=== PATIENT | male | born 1970 | race Caucasian/White ===

== ENCOUNTER 2022-04-10 09:25 | Emergency (ER) | payer OTHER, SELFPAY ==
[2022-04-10 09:26] VITALS: BP 151/100; PULSE 99; RESP 17; TEMP 35.8; O2SAT 96; BMI 24.7
--- NOTE | 2022-04-10 09:35 | RAD_ITS ---
STUDY: X-RAY - RIGHT WRIST REASON FOR EXAM: Male, 52 years old. Dog bite TECHNIQUE: 3 view(s) of the wrist were obtained. COMPARISON: None. FINDINGS: Normal visualized distal radius and ulna. Normal radiocarpal articulation. Normal distal radioulnar articulation. Normal carpal bones. Normal carpal articulations. Normal carpometacarpal articulation of the thumb. Normal second through fifth carpometacarpal articulations. Normal visualized metacarpal bones. The soft tissue structures are unremarkable. RAD/Wrist min 3 Views IMPRESSION: Normal x-ray examination of the wrist. Electronically Signed: Artur Dietrich MD at 10:21 EST ,
--- NOTE | 2022-04-10 09:36 | EX.ED.VISEXT ---
HPI History of Present Illness Chief Complaint: Bite Narrative Narrative: 52-year-old male presenting with dog bite to the right wrist and hand. He states he was checking on a customer's house and he noted that there was a dog on the chain in the yard. 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 He states that it was a [place] Strong and it jumped up and bit him on the right wrist. He states he did not sustain any other injuries. He states that he can move his wrist, but it does hurt. The patient states that his boss is currently going to check on the dog's immunization status. ROS ROS ED Constitutional Constitutional ED: Denies chills, fever(s) or sweats Eyes Eyes: Denies blurry vision or change in vision ENT ENT ED: Denies ear pain or sore throat Cardiovascular Cardiovascular: Denies chest pain, palpitations or racing heartbeat Respiratory/Chest Respiratory/Chest: Denies cough, dyspnea or sputum Gastrointestinal Gastrointestinal: Denies abdominal pain, constipation, diarrhea, nausea or vomiting Genitourinary Genitourinary ED: Denies dysuria, hematuria or urinary frequency Musculoskeletal Musculoskeletal: Denies arthralgias, myalgias or neck pain Integumentary Reports other Details: puncture type wounds to the wrist ; Denies abscess Neurologic Neurologic: Denies headache(s), paresthesias or weakness Psychiatric Psychiatric: Denies anxiety, depression, suicidal ideation or suicidal thoughts Endocrine Endocrinology: Denies polydipsia or polyuria PFSH PFSH Medical History no medical history Home Medications amoxicillin 875 mg-potassium clavulanate 125 mg tablet 1 tab PO BID #20 tabs 04/10/22 [Rx Last Taken Unknown] Allergy/AdvReac Type Severity Reaction Status Date / Time No Known Allergies Allergy Verified 04/10/22 09:25 Social History Smoking Status: Never smoker EXAM Physical Exam Const Vital Signs: 04/10/22 09:26 Temperature 96.5 F L Temperature Source Temporal Pulse Rate 99 Respiratory Rate 17 Blood Pressure 151/100 H Blood Pressure Mean 117 Pulse Ox 96 Oxygen Delivery Method Room Air Positive well nourished General Appearance ED: NAD HEENT Reports moist mucous membranes normocephalic and atraumatic Eyes PERRL and EOMs intact bilaterally Resp normal respiratory effort Cardio regular rate and regular rhythm Extremity Extremity Narrative: Right wrist diffusely tender to palpation without deformity. There is a 2 cm linear laceration on the volar aspect of the right wrist and superficial puncture type wounds to the lateral side, and slightly dorsal region of the distal radial region. Right hand is neurovascular tact prescription for all 5 fingers. Neuro oriented x3 and CN's II-XII intact bilaterally Sensorium / Orientation: alert Motor Exam: strength 5/5 throughout Psych mental status grossly normal and thought process normal Skin Skin Narrative: As described above MDM MDM MDM Narrative Medical decision making narrative: Patient presenting after dog bite to right wrist. Patient has minimal bleeding on examination. Wounds as described in physical exam. Patient's wounds were cleaned and soaked. Patient was given Augmentin. Tetanus was updated. The patient and his boss were able to ascertain that the dog had all of its appropriate immunizations. At this point he will not need any rabies vaccination. Patient's wound was dressed. He is given Augmentin for home. Wound care and return precautions are discussed. Impression: 1. Dog bite right wrist 2. Tetanus immunization Lab Data Attestation: I reviewed the patient's lab results. Radiography Diagnostic Testing: Clinical Impression(s) from Imaging Studies Wrist X-Ray 04/10/22 09:35 IMPRESSION: Normal x-ray examination of the wrist. Electronically Signed: Artur Dietrich MD at 10:21 EST , Hand X-Ray 04/10/22 09:50 IMPRESSION: Normal x-ray examination of the hand. Electronically Signed: Artur Dietrich MD at 10:21 EST , Discharge Plan Triage Chief Complaint: Bite ED Provider: Ibrahima Rivera Dx/Rx/DC Orders Instructions: ED Dog Bite Prescriptions: New amoxicillin-pot clavulanate 875-125 mg tablet 1 tab PO BID Qty: 20 0RF [facility] Care Provider: [facility] Referrals: [facility] [Non-Staff[facility] - [facility] - Disposition Disposition: Home, Self Care
--- NOTE | 2022-04-10 09:50 | RAD_ITS ---
STUDY: X-RAY - RIGHT HAND REASON FOR EXAM: Male, 52 years old. Dog bite TECHNIQUE: 3 view(s) of the hand. COMPARISON: None. FINDINGS: Normal radiocarpal articulation. Normal distal radioulnar joint. Normal visualized carpal bones. Normal carpal articulations Normal carpometacarpal articulation of the thumb. Normal second through fifth carpometacarpal joints. Normal metacarpi. Normal metacarpophalangeal joint of the thumb. Normal interphalangeal joint of the thumb. Normal proximal and distal phalanges of the thumb. Normal metacarpophalangeal joints of the second through fifth fingers. Normal proximal and distal interphalangeal joints of the second through fifth fingers. Normal phalanges of the second through fifth fingers. The soft tissue structures are unremarkable. RAD/Hand Min 3 Views IMPRESSION: Normal x-ray examination of the hand. Electronically Signed: Artur Dietrich MD at 10:21 [facility] ,
--- NOTE | 2022-04-10 09:51 | ED.RN ---
THIS RN SPOKE WITH PT DIAGRAMMER STEPHEN BERGER. PER STEPHEN PT WILL REQUIRE A DRUG SCREEN FOR WORKMAN'S COMP. STEPHEN REQUESTS THAT I SPEAK WITH COMPANY MD DR. CASAS. THIS RN CALLS DR. CASAS AT , AND REPORTS PT WILL ALSO NEED DRUG SCREENED FOR WORKMAN'S COMP. DR. CASAS GIVES THIS RN PHONE NUMBER FOR [employer]PHEN'S DIAGRAMMER CHASTITY MIRANDA, PHONE NUMBER [phone]. CORPORATE CARE WORKER GUSTAVO NOTIFIED OF WORKMANS COMP AND THAT PT COMPANY IS NOT LISTED IN OUR SYSTEM. THIS RN SHARES ALL PHONE NUMBERS LISTED ABOVE WITH GUSTAVO.
[2022-04-10] MEDS: Diphth,Pertuss(Acell),Tet Vac 0.5 ML Vial IM (10:08)
[2022-04-10] MEDS: Amox/Clavulanate 875 MG Tablet PO (11:39)
[2022-04-10 12:11] VITALS: PULSE 87; RESP 17; O2SAT 97
== END 2022-04-10 12:12 | disposition home or self-care (01) ==
PROVIDERS: Emergency Provider Student in an Organized Health Care Education/Training Program; Visit Provider Student in an Organized Health Care Education/Training Program
DX: S61.551A Open bite of right wrist, initial encounter (principal); Z23 Encounter for immunization; W54.0XXA Bitten by dog, initial encounter
CPT/HCPCS: 73110; 73130; 90471; 90715; 99283